=== PATIENT | male | born 2000 | race Caucasian/White ===

== ENCOUNTER 2021-05-25 13:57 | Emergency (ER) | payer OTHER ==
--- NOTE | 2021-05-25 14:12 | EDM.PDOC ---
ED HPI GENERAL MEDICAL PROBLEM - General Chief Complaint: Head Injury Stated Complaint: WORK ACCIDENT PT WAS HIT IN HEAD Time Seen by Provider: 05/25/21 13:59 Source of Information: Reports: Patient History Limitations: Reports: No Limitations - History of Present Illness INITIAL COMMENTS - FREE TEXT/NARRATIVE: 20-year-old with no past medical history no daily medications presents for closed head injury. 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 He pulled up a little too quickly and the machinery slipped out of the hole and hit him in the back of the head. He states that afterwards he felt dazed and confused for several seconds. He was not really sure what had happened. His coworkers had to explain to him what it happened. He sat down and was no longer confused but did note some sound sensitivity and pain in the back of his head where he was hit. He noted some nausea but no vomiting. He currently notes a headache at the site of the machinery impact but no other symptoms. Head Pain Score (Numeric/FACES): 7 - Related Data Allergies Allergy/AdvReac Type Severity Reaction Status Date / Time No Known Allergies Allergy Verified 05/25/21 14:24 Home Meds: Home Meds . [No Known Home Meds] 05/25/21 [History] ED ROS GENERAL - Review of Systems Review Of Systems: Comprehensive ROS is negative, except as noted in HPI. ED EXAM, HEAD INJURY - Physical Exam Exam: See Below Exam Limited By: No Limitations General Appearance: Alert, WD/WN, No Apparent Distress Head: Atraumatic, Normocephalic Nexus Criteria: No: Posterior, Midline Cervical Tenderness, Evidence of Intoxication, Altered Level of Consciousness, Focal Neurological Deficit, Painful Distraction Injuries Eyes: Bilateral Eye: EOMI, PERRL Ears: Hearing Grossly Normal Throat/Mouth: Normal Voice, No Airway Compromise Neck: Non-Tender, Normal Alignment Respiratory: No Respiratory Distress, Lungs Clear, Normal Breath Sounds, No Accessory Muscle Use Cardiovascular: Normal Peripheral Pulses, Regular Rate, Rhythm Extremities: Normal Inspection Neurologic: prestidigitator II-XII nml As Tested, No Motor/Sensory Deficits, Alert, Normal Mood/Affect, Oriented x 3 Skin: Normal Color, Warm/Dry Course - Vital Signs Last Recorded V/S: Last Vital Signs Temp 97.5 F 05/25/21 14:24 Pulse 62 05/25/21 14:24 Resp 16 05/25/21 14:24 BP 121/80 05/25/21 14:24 Pulse Ox 98 05/25/21 14:24 - Orders/Labs/Meds Meds: Medications Discontinued Medications Generic Name Dose Route Start Last Admin Trade Name Citlali PRN Reason Stop Dose Admin Acetaminophen 1,000 mg 05/25/21 14:33 05/25/21 14:43 Acetaminophen 500 Mg Tab PO 05/25/21 14:34 1,000 mg ONETIME ONE Administration Ondansetron HCl 4 mg 05/25/21 14:33 05/25/21 14:44 Ondansetron 4 Mg Tab.Dis PO 05/25/21 14:34 4 mg ONETIME ONE Administration - Re-Assessments/Exams Free Text/Narrative Re-Assessment/Exam: 05/25/21 14:34 Patient symptoms likely secondary to concussion. Will get head CT to rule out emergent intracranial pathology. 05/25/21 15:[address] is normal. Will discharge patient with return precautions. Departure - Departure Time of Disposition: 15:41 Disposition: Home, Self-Care 01 Condition: Good Clinical Impression: Concussion Qualifiers: Encounter type: initial encounter Loss of consciousness presence/duration: without LOC Qualified Code(s): S06.0X0A - Concussion without loss of consciousness, initial encounter - Discharge Information Instructions: Concussion, Adult Referrals: PCP,Not In Area [Primary Care Provider] - Forms: ED Department Discharge Additional Instructions: The best way to protect yourself and others from COVID-19 is to take one of the three safe and effective vaccines that have been proven to substantially reduce risk of both infection and severe illness. [facility] is currently offering COVID vaccinations for anyone age 18 and older. To schedule an appointment call [phone]. Or to be contacted by our clinics about scheduling your vaccine online, please go to [email or web address] The following information is given to patients seen in the emergency department who are being discharged to home. This information is to outline your options for follow-up care. We provide all patients seen in our emergency department with a follow-up referral. The need for follow-up, as well as the timing and circumstances, are variable depending upon the specifics of your emergency department visit. If you don't have a primary care physician on staff, we will provide you with a referral. We always advise you to contact your personal physician following an emergency department visit to inform them of the circumstance of the visit and for follow-up with them and/or the need for any referrals to a consulting specialist. The emergency department will also refer you to a specialist when appropriate. This referral assures that you have the opportunity for follow-up care with a specialist. All of these measure are taken in an effort to provide you with optimal care, which includes your follow-up. Under all circumstances we always encourage you to contact your private physician who remains a resource for coordinating your care. When calling for follow-up care, please make the office aware that this follow-up is from your recent emergency room visit. If for any reason you are refused follow-up, please contact the [facility] Emergency Department at and asked to speak to the emergency department charge nurse. Please follow up with your primary care physician. If you do not have a primary care physician, see below: [facility] [address] [place] [id number] [facility] [address] [place] [address] Sepsis Event Note (ED) - Focused Exam Vital Signs: Vital Signs Temp Pulse Resp BP Pulse Ox 05/25/21 14:24 97.5 F 62 16 121/80 98
[2021-05-25] MEDS ORDERED: Acetaminophen 500 MG Tab PO ONE (14:33)
[2021-05-25] MEDS ORDERED: Ondansetron 4 MG Tab.DIS PO ONE (14:33)
--- NOTE | 2021-05-25 15:34 | CT ---
INDICATION: Head injury. Headache. TECHNIQUE: Axial images. Coronal and sagittal reconstructions. COMPARISON: None. FINDINGS: No skull fracture. No abnormal intracranial mass effect or midline shift. No acute intracranial hemorrhage. No abnormal of low attenuation are seen within the brain parenchyma. CSF spaces are age-appropriate. There is mild mucosal thickening seen in delete both maxillary sinuses with a trace amount of fluid in the left maxillary sinus. Remainder of the paranasal sinuses and mastoids are clear. IMPRESSION: 1. No CT evidence of an acute intracranial abnormality. 2. No skull fracture. 3. Mild paranasal sinus disease. See above. Dictated by Chun Mensah MD @ 05/25/2021 3:32:33 PM Please note that all CT scans at this facility use dose modulation, iterative reconstruction, and/or weight-based dosing when appropriate to reduce radiation dose to as low as reasonably achievable. Dictated by: Chun Mensah MD @ 05/25/2021 15:32:52 (Electronically Signed)
== END 2021-05-25 15:54 | disposition home or self-care (01) ==
LOC: MW.ED 13:57
DX: S06.0X0A Concussion without loss of consciousness, initial encounter (principal); W22.8XXA Striking against or struck by other objects, initial encounter; Y92.89 Other specified places as the place of occurrence of the external cause; Y99.0 Civilian activity done for income or pay
CPT/HCPCS: 70450; 99283; A9270